=== PATIENT | female | born 1995 | race Caucasian/White ===

== ENCOUNTER 2018-03-20 21:34 | Emergency (ER) | payer OTHER ==
[~2018-03-20] VITALS: Ht 162.6 cm; Wt 82.0 kg
[2018-03-20 21:38] VITALS: BP 133/83; PULSE 100; RESP 16; TEMP 99; O2SAT 100
== END 2018-03-20 23:00 | disposition left against medical advice (07) ==
LOC: NED 21:34
DX: J00 Acute nasopharyngitis [common cold] (principal)
CPT/HCPCS: 99281

== ENCOUNTER 2018-03-20 22:31 | Emergency (ER) | payer OTHER ==
[~2018-03-20] VITALS: Ht 162.6 cm; Wt 89.7 kg
[2018-03-20 22:40] VITALS: BP 140/84; PULSE 94; RESP 16; TEMP 98.8; O2SAT 100
--- NOTE | 2018-03-21 00:21 | PD ---
HPI Chief Complaint: Headache Time Seen by Provider: 00:20 Travel History International Travel<30 days: No Contact w/Intl Traveler<30days: No Traveled to known affect area: No History of Present Illness HPI 22-year-old female came to the emergency room with history of headache. She gets frequent headaches and has been getting a headache every day since past 4- 5 days. Patient today started getting some sore throat as well and has decided to come to the emergency room. She did not take anything for her sore throat or headache before coming to the emergency room. Vital signs are stable. No known sick contacts. Headache is mostly frontal and no different than her usual headaches. PFSH Past Medical History Narrative Medical List of her past medical, surgical, social and family history is reviewed from the nursing note. Social History Tobacco Use: Yes Allergies-Medications (Allergen,Severity, Reaction): Coded Allergies: No Known Allergies (Unverified , 03/21/18) Comments No known drug allergies. Narrative Medication Awaiting for the nurse to do the med reconciliation P Review of Systems Except as stated in HPI: all other systems reviewed are Neg HENT: Positive: Headaches, Sore Throat Physical Exam Narrative GENERAL: Awake, alert, no obvious distress SKIN: Focused skin assessment warm/dry. HEAD: Atraumatic. Normocephalic. EYES: Pupils equal and round. No scleral icterus. No injection or drainage. ENT: No nasal bleeding or discharge. Mucous membranes pink and moist. Slight erythema of the pharynx. No exudates. Some submandibular lymphadenopathy but nontender NECK: Trachea midline. No JVD. CARDIOVASCULAR: Regular rate and rhythm. No murmur appreciated. RESPIRATORY: No accessory muscle use. Clear to auscultation. Breath sounds equal bilaterally. GASTROINTESTINAL: Abdomen soft, non-tender, nondistended. Hepatic and splenic margins not palpable. MUSCULOSKELETAL: No obvious deformities. No clubbing. No cyanosis. No edema. NEUROLOGICAL: Awake and alert. No obvious cranial nerve deficits. Motor grossly within normal limits. Normal speech. PSYCHIATRIC: Appropriate mood and affect; insight and judgment normal. Data Data Last Documented VS Vital Signs Date Time Temp Pulse Resp B/P (MAP) Pulse Ox O2 Delivery O2 Flow Rate FiO2 03/21/18 01:08 99 18 131/82 (98) 97 03/21/18 00:30 98.8 03/20/18 22:40 Room Air Orders Orders Acetaminophen (Tylenol) (03/21/18 00:30) Group A Rapid Strep Screen (03/21/18 00:25) Strep Culture (Group A) (03/21/18 00:32) Ed Discharge Order (03/21/18 00:57) MDM Medical Decision Making Medical Screen Exam Complete: Yes Emergency Medical Condition: Yes Medical Record Reviewed: Yes Differential Diagnosis Strep throat, viral infection, headache nos Narrative Course 12:29 AM have ordered for rapid strep and Tylenol for the headache. His rapid strep is negative patient will be discharged home. Procedures EKG Prior to Arrival: No Diagnosis Primary Impression: Viral pharyngitis Additional Impression: Acute on chronic headache Referrals: [facility] Additional Instructions: Take Tylenol/Advil/ibuprofen/Motrin for headache and throat pain which is available [id number]. Follow-up with the walk-in clinic whose address has been provided to you if you do not have a primary care physician for minor issues history of coming to the emergency. Med/Other Pt SpecificInfo: No Change to Meds Disposition: 01 DISCHARGE HOME Condition: Jonn Gallegos MD March 21, 2018 00:21
[2018-03-21 00:30] VITALS: BP 152/86; PULSE 99; RESP 18; TEMP 98.8; O2SAT 100
[2018-03-21] MEDS ORDERED: ACETAMINOPHEN 325 MG TAB PO ONE (00:30)
[2018-03-21 01:08] VITALS: BP 131/82
== END 2018-03-21 01:09 | disposition home or self-care (01) ==
LOC: PHED 22:31
DX: J02.8 Acute pharyngitis due to other specified organisms (principal); B97.89 Other viral agents as the cause of diseases classified elsewhere; R51 Headache; Z72.0 Tobacco use
CPT/HCPCS: 87081; 87880; 99283